=== PATIENT | female | born 1970 | race Caucasian/White ===

== ENCOUNTER 2021-08-14 10:01 | Day surgery (SDC) | payer OTHER ==
[~2021-08-14 10:01] MED LIST: IRON PO; LEVOTHYROXINE25 MCG PO; VITAMIN D-40010 MCG PO
== END 2021-08-14 17:15 | disposition home or self-care (01) ==
LOC: CIR.AMB 10:01
PROVIDERS: ATTEND Obstetrics & Gynecology
DX: N84.0 Polyp of corpus uteri (principal); Z20.822 Contact with and (suspected) exposure to COVID-19